=== PATIENT | female | born 1960 | race American Indian/Alaskan Native ===

== ENCOUNTER 2016-12-14 14:25 | Emergency (ER) | payer SELFPAY ==
[2016-12-14 15:12] LABS: Basophils % (Auto) 0.6 % (0.0-1.8); Eosinophils % (Auto) 2.4 % (0.0-4.3); Hematocrit 39.1 % (30.3-42.9); Mean Corpuscular HGB Conc 33 % (30-34); Mean Corpuscular Hemoglobin 27 pg (28-32); Mean Corpuscular Volume 82 fl (79-97); Platelet Count 323 K/mm3 (140-440); Red Blood Count 4.75 M/mm3 (3.65-5.03); Red Cell Distribution Width 14.2 % (13.2-15.2); White Blood Count 9.7 K/mm3 (4.5-11.0)
[2016-12-14 15:32] LABS: Anion Gap 20 mmol/L; BUN/Creatinine Ratio 27.14; Blood Urea Nitrogen 19 mg/dL (7-17); Calcium 9.7 mg/dL (8.4-10.2); Carbon Dioxide 27 mmol/L (22-30); Glucose 313 mg/dL (65-100); Potassium 4.6 mmol/L (3.6-5.0); Sodium 134 mmol/L (137-145)
--- NOTE | 2016-12-14 15:36 | XRay Report ---
CHEST 2 VIEWS INDICATION: Shortness of breath. COMPARISON: . FINDINGS: PA and lateral chest radiographs demonstrate slight exaggerated cardiomediastinal silhouette/possible cardiomegaly. Clear lungs. Stable bones. CONCLUSION: No acute disease in the chest. Thank you for the opportunity to participate in this patient's care.
--- NOTE | 2016-12-14 17:46 | Emergency Department Report ---
- General Chief Complaint: Dizziness Stated Complaint: DIZZINESS Time Seen by Provider: 12/14/16 17:45 Source: patient Mode of arrival: Ambulatory Limitations: No Limitations - History of Present Illness Initial Comments: Patient here reports that she has) 9 weeks. She states that she's been to clinic 3 without relief. She is taking [id number] medication without any relief. She is having nasal congestion, ears are clogged. Denies any shortness of breath. She says she's having chest aching times several weeks which is associated with coughing. Denies any fever. Complaining of dizziness on and off with decrease in taste. She said when on for 2 weeks. She is complaining of left-sided chest pain 2-4 days. Reports shortness of breath 2 days. She said she goes to the chest. Clinic and put on Rhinocort and Robitussin which is not helping. She has a history of diabetes type 2, hypertension and increased cholesterol and asthma. Denies any nausea vomiting or abdominal pain. She is reports she is having facial pain is getting worse. The left chest and facial pain is 6 out of 10 and feels achy. Denies any history of heart disease or heart attack in the past. Patient does have a history of congestive heart failure . She denies any radiation of pain. MD Complaint: cough, rhinorrhea, nasal congestion, sinus pain Onset/Timin -: week(s) Severity: moderate Severity scale (0 -10): 6 Quality: aching Consistency: intermittent Improves With: OTC cold medicine, OTC nasal spray Worsens With: nothing Context: other (Sinus problems over the last 9 weeks) Associated Symptoms: rhinorrhea, nasal congestion, cough, chest pain, ear pain ( ears are clogged). denies: fever, chills, myalgias, diaphoresis, sore throat, shortness of breath, abdominal pain, nausea, vomiting, diarrhea, dysuria, rash, confusion, right sweats, weight loss, epistaxis, hoarseness Treatments Prior to Arrival: "cold medicine" - Related Data Home Medications Medication Instructions Recorded Confirmed Last Taken Aspirin [Aspirin BABY CHEW TAB] 81 mg PO QDAY 09/30/13 09/30/13 09/30/13 07:00 Furosemide [Lasix] 20 mg PO QDAY 09/30/13 09/30/13 09/29/13 10:00 Insulin Lispro Prot/Lispro 45 units SUB-Q QPM 09/30/13 09/30/13 09/29/13 18:00 [Humalog Mix 75/25] Insulin NPL/Insulin Lispro 75 units SUB-Q QDAY 09/30/13 09/30/13 09/29/13 10:00 [Humalog Mix 75-25 Vial] Lisinopril [Zestril TAB] 20 mg PO BID 09/30/13 09/30/13 09/30/13 07:00 Potassium Chloride [Klor-Con] 20 meq PO QDAY 09/30/13 09/30/13 09/29/13 10:00 glipiZIDE [glipiZIDE XL] 10 mg PO QDAY 09/30/13 09/30/13 09/29/13 10:00 metFORMIN [Glucophage] 500 mg PO BID 09/30/13 09/30/13 09/29/13 18:00 Previous Rx's Medication Instructions Recorded Last Taken Type Albuterol Sulfate [Proventil HFA] 1 - 2 puff IH Q4H PRN #1 hfa.aer.ad 09/30/13 Unknown Rx Ibuprofen [Motrin] 800 mg PO TID PRN #20 tablet 09/30/13 Unknown Rx Prednisone 40 mg PO QDAY #8 tablet 09/30/13 Unknown Rx HYDROcodone/APAP 5-325 [[place] 1 each PO Q6HR PRN #20 tablet 11/10/14 Unknown Rx 5-325 mg TAB] Ondansetron [Zofran] 4 mg PO Q6HR PRN #20 tablet 11/10/14 Unknown Rx HYDROcodone/APAP 5-325 [[place] 1 each PO Q6HR PRN #20 tablet 03/15/15 Unknown Rx 5/325] Azithromycin [Zithromax Z-DANIEL] 250 mg PO DAILY #6 tab 12/14/16 Unknown Rx guaiFENesin/CODEINE [Robitussin AC] 10 ml PO QHS PRN #70 ml 12/14/16 Unknown Rx predniSONE [Deltasone] 20 mg PO QDAY #5 tab 12/14/16 Unknown Rx Allergies Allergy/AdvReac Type Severity Reaction Status Date / Time cephalexin monohydrate AdvReac Anaphylaxis Verified 12/14/16 14:48 [From Keflex] ciprofloxacin [From Cipro] AdvReac "KIDNEY Verified 12/14/16 14:49 PROBLEMS" ciprofloxacin HCl AdvReac "KIDNEY Verified 12/14/16 14:49 [From Cipro] PROBLEMS" ED Review of Systems ROS: Stated complaint: DIZZINESS Other details as noted in HPI Comment: All other systems reviewed and negative Constitutional: denies: chills, diaphoresis ENT: ear pain (clogged ears), congestion, other (facial pain). denies: throat pain, dental pain, hearing loss Respiratory: cough, shortness of breath, SOB with exertion. denies: SOB at rest , stridor, wheezing Cardiovascular: chest pain. denies: palpitations, edema, syncope Gastrointestinal: denies: abdominal pain, nausea, vomiting, diarrhea Skin: denies: rash Neurological: other (dizziness). denies: headache, numbness, paresthesias, confusion Psychiatric: anxiety ED Past Medical Hx - Past Medical History Previous Medical History?: Yes Hx Hypertension: Yes Hx Congestive Heart Failure: Yes Hx Diabetes: Yes Hx GERD: Yes Hx Arthritis: Yes Hx Kidney Stones: Yes Hx Asthma: Yes Additional medical history: high cholesterol. SCIATICA. GALLSTONES - Surgical History Past Surgical History?: Yes Additional Surgical History: hysterectomy - Family History Family history: hypertension - Social History Smoking Status: Never Smoker Substance Use Type: None - Medications Home Medications: Home Medications Medication Instructions Recorded Confirmed Last Taken Type Albuterol Sulfate [Proventil HFA] 1 - 2 puff IH Q4H PRN #1 hfa.aer.ad 09/30/13 Unknown Rx Aspirin [Aspirin BABY CHEW TAB] 81 mg PO QDAY 09/30/13 09/30/13 09/30/13 07:00 History Furosemide [Lasix] 20 mg PO QDAY 09/30/13 09/30/13 09/29/13 10:00 History Ibuprofen [Motrin] 800 mg PO TID PRN #20 tablet 09/30/13 Unknown Rx Insulin Lispro Prot/Lispro 45 units SUB-Q QPM 09/30/13 09/30/13 09/29/13 18:00 History [Humalog Mix 75/25] Insulin NPL/Insulin Lispro 75 units SUB-Q QDAY 09/30/13 09/30/13 09/29/13 10:00 History [Humalog Mix 75-25 Vial] Lisinopril [Zestril TAB] 20 mg PO BID 09/30/13 09/30/13 09/30/13 07:00 History Potassium Chloride [Klor-Con] 20 meq PO QDAY 09/30/13 09/30/13 09/29/13 10:00 History Prednisone 40 mg PO QDAY #8 tablet 09/30/13 Unknown Rx glipiZIDE [glipiZIDE XL] 10 mg PO QDAY 09/30/13 09/30/13 09/29/13 10:00 History metFORMIN [Glucophage] 500 mg PO BID 09/30/13 09/30/13 09/29/13 18:00 History HYDROcodone/APAP 5-325 [[place] 1 each PO Q6HR PRN #20 tablet 11/10/14 Unknown Rx 5-325 mg TAB] Ondansetron [Zofran] 4 mg PO Q6HR PRN #20 tablet 11/10/14 Unknown Rx HYDROcodone/APAP 5-325 [[place] 1 each PO Q6HR PRN #20 tablet 03/15/15 Unknown Rx 5/325] Azithromycin [Zithromax Z-DANIEL] 250 mg PO DAILY #6 tab 12/14/16 Unknown Rx guaiFENesin/CODEINE [Robitussin AC] 10 ml PO QHS PRN #70 ml 12/14/16 Unknown Rx predniSONE [Deltasone] 20 mg PO QDAY #5 tab 12/14/16 Unknown Rx ED Physical Exam - General Limitations: No Limitations General appearance: alert, in no apparent distress - Head Head exam: Present: atraumatic, normocephalic, normal inspection - Eye Eye exam: Present: normal appearance, PERRL, EOMI. Absent: periorbital swelling , periorbital tenderness Pupils: Present: normal accommodation - ENT ENT exam: Present: normal orophraynx, mucous membranes moist, normal external ear exam, other (bilateral nasal mucosa congested with erythema). Absent: TM's normal bilaterally (bilateral TMs congested without any erythema) - Neck Neck exam: Present: normal inspection, full ROM. Absent: tenderness, meningismus, lymphadenopathy - Respiratory Respiratory exam: Present: normal lung sounds bilaterally, other (Dry cough). Absent: respiratory distress, chest wall tenderness - Cardiovascular Cardiovascular Exam: Present: regular rate, normal rhythm, normal heart sounds - GI/Abdominal GI/Abdominal exam: Present: soft, normal bowel sounds. Absent: distended, tenderness, guarding, rebound, rigid - Extremities Exam Extremities exam: Present: normal inspection, full ROM, normal capillary refill. Absent: tenderness, pedal edema, joint swelling, calf tenderness - Back Exam Back exam: Present: normal inspection, full ROM. Absent: tenderness, CVA tenderness (R), CVA tenderness (L), muscle spasm, paraspinal tenderness, vertebral tenderness, rash noted - Neurological Exam Neurological exam: Present: alert, oriented X3, normal gait, reflexes normal. Absent: motor sensory deficit - Expanded Neurological Exam Expanded Neurological exam: Absent: innattentive, memory loss-remote event, memory loss- recent event, ataxia, receptive aphasia, expressive aphasia, total aphasia, tremor, protecting the airway Patient oriented to: Present: person, place, time Speech: Present: fluid speech Cranial nerves: EOM's Intact: Normal, Gag Reflex: Normal, Nystagmus: Normal, Facial Sensation: Normal Cerebellar function: Romberg: Normal Upper motor neuron: Pronator Drift: Normal Sensory exam: Upper Extremity Light Touch: Normal, Upper Extremity Temperature: Normal, UE 2 Point Discrimination: Normal, Lower Extremity Light Touch: Normal, Lower Extremity Temperature: Normal, LE 2 Point Discrimination: Normal Motor strength exam: RUE: 5, LUE: 5, RLE: 5, LLE: 5 DTR: bicep (R): 2+, bicep (L): 2+, tricep (R): 2+, tricep (L): 2+, knee (R): 2+ , knee (L): 2+, ankle (R): 2+, ankle (L): 2+ Best Eye Response ([place]): (4) open spontaneously Best Motor Response ([place]): (6) obeys commands Best Verbal Response ([place]): (5) oriented [place] Total: 15 - Psychiatric Psychiatric exam: Present: normal affect, normal mood - Skin Skin exam: Present: warm, dry, intact, normal color. Absent: rash ED Course Vital Signs 12/14/16 12/14/16 12/14/16 14:30 17:56 18:13 Temperature 98.1 F Pulse Rate 90 83 Pulse Rate [ 80 Bilateral Upper Lobe] Respiratory 20 16 Rate Respiratory 18 Rate [Bilateral Upper Lobe] Blood Pressure 199/87 Blood Pressure 140/67 [Left] O2 Sat by Pulse 99 100 Oximetry 12/14/16 18:23 Temperature Pulse Rate Pulse Rate [ 84 Bilateral Upper Lobe] Respiratory Rate Respiratory 18 Rate [Bilateral Upper Lobe] Blood Pressure Blood Pressure [Left] O2 Sat by Pulse Oximetry - Reevaluation(s) Reevaluation #1: 12/14/16 20:12 Patient given albuterol 5 mg and Atrovent 0.5 mg as well as an emergency room. She was given Zofran 8 mg ODT Deltasone 60 mg by mouth. 12/14/16 20:13 ED Medical Decision Making - Lab Data Result diagrams: 12/14/16 15:00 12/14/16 15:00 Lab Results 12/14/16 12/14/16 Range/Units 15:00 15:00 WBC 9.7 (4.5-11.0) K/mm3 RBC 4.75 (3.65-5.03) M/mm3 Hgb 13.0 (10.1-14.3) gm/dl Hct 39.1 (30.3-42.9) % MCV 82 (79-97) fl MCH 27 L (28-32) pg MCHC 33 (30-34) % RDW 14.2 (13.2-15.2) % Plt Count 323 (140-440) K/mm3 Lymph % (Auto) 32.5 (13.4-35.0) % [place] % (Auto) 4.6 (0.0-7.3) % Eos % (Auto) 2.4 (0.0-4.3) % Baso % (Auto) 0.6 (0.0-1.8) % Lymph # 3.2 (1.2-5.4) K/mm3 [place] # 0.5 (0.0-0.8) K/mm3 Eos # 0.2 (0.0-0.4) K/mm3 Baso # 0.1 (0.0-0.1) K/mm3 Seg Neutrophils % 59.9 (40.0-70.0) % Seg Neutrophils # 5.8 (1.8-7.7) K/mm3 Sodium 134 L (137-145) mmol/L Potassium 4.6 (3.6-5.0) mmol/L Chloride 92.0 L (98-107) mmol/L Carbon Dioxide 27 (22-30) mmol/L Anion Gap 20 mmol/L BUN 19 H (7-17) mg/dL Creatinine 0.7 (0.7-1.2) mg/dL Estimated GFR > 60 ml/min BUN/Creatinine Ratio 27.14 % Glucose 313 H (65-100) mg/dL Calcium 9.7 (8.4-10.2) mg/dL Troponin T < 0.010 (0.00-0.029) ng/mL - EKG Data EKG shows normal: sinus rhythm Rate: normal - EKG Data Interpretation: no acute changes - Radiology Data Radiology results: report reviewed Chest x-ray revealed no acute cardiopulmonary processes - Medical Decision Making Collaborated with Dr. Duran on management ED course: Patient presents to emergency room with cold symptoms for 9 weeks. She was complaining of chest pain and dizziness clogged ears. Chest pain and dizziness has resolved. Patient was treated by her primary care physician Crystal and Enrike which she said is not helping. Patient lab work reviewed and she has mildly decreased sodium of 134. X-ray was within normal limits and troponins were negative. I discussed lab and result with patient. Patient is feeling better. She was given Deltasone 60 mg by mouth, Zofran 8 mg ODT, albuterol 5 mg and Atrovent 0.5 mg nebulizer in emergency room. The patient that she has sinus infection and will be treated with antibiotic, continue Rhinocort and add prednisone. Also at cough medicine. Patient instructed to follow up with her primary care physician in 2 days. Discharged home with family with prescription for Z-Daniel, guaifenesin with codeine and prednisone. - Differential Diagnosis PNA, Acute Bronchitis PNA, ACS, Viral syndrome, sinusitis Critical care attestation.: If time is entered above; I have spent that time in minutes in the direct care of this critically ill patient, excluding procedure time. ED Disposition Clinical Impression: Chest pain, atypical, Cough, Dizzy spells Acute sinusitis Qualifiers: Sinusitis location: unspecified location Recurrence: non-recurrent Qualified Code(s): J01.90 - Acute sinusitis, unspecified Disposition: DISCHARGED TO HOME OR SELFCARE Is pt being admited?: No Does the pt Need Aspirin: No Condition: Stable Instructions: Chest Pain (ED), Sinusitis (ED), Dizziness (ED), Acute Cough (ED) Additional Instructions: continue using Debby Pot Follow-up with cardiology if chest pain recur. F/U Primary care physician in 2 days continue to take Rhinocort increase fluid intake Prescriptions: guaiFENesin/CODEINE [Robitussin AC] 10 ml PO QHS PRN #70 ml PRN Reason: Cough Azithromycin [Zithromax Z-DANIEL] 250 mg PO DAILY #6 tab predniSONE [Deltasone] 20 mg PO QDAY #5 tab Referrals: PRIMARY CAREMD [Primary Care Provider] - 12/16/16 MARILUZ BRIDGES MD [Staff Physician] - 12/16/16 Forms: Work/School Release Form(ED)
[2016-12-14] MEDS ORDERED: DELTASONE PO ONE (17:50)
[2016-12-14] MEDS ORDERED: PROVENTIL IH ONE (17:50)
[2016-12-14] MEDS ORDERED: ATROVENT IH ONE (17:50)
[2016-12-14] MEDS ORDERED: ZOFRAN ODT PO ONE (17:51)
[2016-12-14 17:57] VITALS: BP 140/67
== END 2016-12-14 20:42 | disposition home or self-care (01) ==
LOC: ED 14:25
DX: R07.89 Other chest pain (principal); R42 Dizziness and giddiness; J01.90 Acute sinusitis, unspecified; R05 Cough; I10 Essential (primary) hypertension; I50.9 Heart failure, unspecified; E11.9 Type 2 diabetes mellitus without complications; K21.9 Gastro-esophageal reflux disease without esophagitis; M19.90 Unspecified osteoarthritis, unspecified site; J45.909 Unspecified asthma, uncomplicated; E78.00 Pure hypercholesterolemia, unspecified; Z90.710 Acquired absence of both cervix and uterus; Z79.82 Long term (current) use of aspirin; Z79.4 Long term (current) use of insulin
CPT/HCPCS: 36415; 71020; 80048; 84484; 85025; 93005; 93010; 94640; 99284; J7512; Q0162

== ENCOUNTER 2017-05-12 07:56 | Emergency (ER) | payer SELFPAY ==
--- NOTE | 2017-05-12 09:22 | XRay Report ---
Right ankle 3 views: History: Pain and swelling. Findings: There is moderate arthritic changes noted at the talotibial joint and subtalar joint. Large spur identified at the posterior superior and posterior inferior calcaneum and inferior aspect of mid body of calcaneum. No evidence of acute fracture. Soft tissue swelling around ankle. Impression: Arthritic changes as detailed above. No evidence of acute fracture.
[2017-05-12 09:24] LABS: Basophils % (Auto) 0.7 % (0.0-1.8); Eosinophils % (Auto) 1.8 % (0.0-4.3); Hematocrit 36.9 % (30.3-42.9); Hemoglobin 12.3 gm/dl (10.1-14.3); Mean Corpuscular HGB Conc 33 % (30-34); Mean Corpuscular Hemoglobin 27 pg (28-32); Mean Corpuscular Volume 82 fl (79-97); Platelet Count 296 K/mm3 (140-440); Red Blood Count 4.51 M/mm3 (3.65-5.03); Red Cell Distribution Width 13.8 % (13.2-15.2); White Blood Count 8.8 K/mm3 (4.5-11.0)
[2017-05-12 09:37] LABS: Alanine Aminotransferase 12 units/L (7-56); Albumin 3.4 g/dL (3.9-5); Alkaline Phosphatase 90 units/L (35-129); Anion Gap 18 mmol/L; Blood Urea Nitrogen 12 mg/dL (7-17); Calcium 8.9 mg/dL (8.4-10.2); Carbon Dioxide 25 mmol/L (22-30); Chloride 97.8 mmol/L (98-107); Glucose 353 mg/dL (65-100); Potassium 3.8 mmol/L (3.6-5.0); Sodium 137 mmol/L (137-145); Total Protein 6.8 g/dL (6.3-8.2)
[2017-05-12 10:27] LABS: Ketones Negative (Negative)
[2017-05-12] MEDS ORDERED: APRESOLINE IV ONE (14:08)
[2017-05-12] MEDS ORDERED: LASIX IV ONE (14:08)
[2017-05-12] MEDS ORDERED: MORPHINE IV ONE (15:45)
--- NOTE | 2017-05-12 17:12 | Emergency Department Report ---
HPI - General Chief Complaint: Extremity Injury, Lower Time Seen by Provider: 05/12/17 13:45 - HPI HPI: This is a 57-year-old Afro-[place] female presents to the emergency department with complaint of right ankle pain and darkening of the skin to the right lower leg that has been going on for about the past 6 weeks. Sometimes the pain will radiate up into her groin. She denies any trauma. She has a history of asthma , CHF, insulin-dependent diabetes, GERD, hypertension, hyperlipidemia, sciatica. She does not have a primary care physician but goes to [facility]. She denies any chest pain, fever, shortness of breath, nausea and vomiting. No recent travel or sick contacts at home. She is able to ambulate despite the discomfort in her right leg. ED Past Medical Hx - Past Medical History Hx Hypertension: Yes Hx Congestive Heart Failure: Yes Hx Diabetes: Yes Hx GERD: Yes Hx Arthritis: Yes Hx Kidney Stones: Yes Hx Asthma: Yes Additional medical history: high cholesterol. SCIATICA. GALLSTONES - Surgical History Additional Surgical History: hysterectomy - Social History Smoking Status: Never Smoker Substance Use Type: Prescribed - Medications Home Medications: Home Medications Medication Instructions Recorded Confirmed Last Taken Type Albuterol Sulfate [Proventil HFA] 1 - 2 puff IH Q4H PRN #1 hfa.aer.ad 09/30/13 Unknown Rx Aspirin [Aspirin BABY CHEW TAB] 81 mg PO QDAY 09/30/13 09/30/13 09/30/13 07:00 History Furosemide [Lasix] 20 mg PO QDAY 09/30/13 09/30/13 09/29/13 10:00 History Ibuprofen [Motrin] 800 mg PO TID PRN #20 tablet 09/30/13 Unknown Rx Insulin Lispro Prot/Lispro 45 units SUB-Q QPM 09/30/13 09/30/13 09/29/13 18:00 History [Humalog Mix 75/25] Insulin NPL/Insulin Lispro 75 units SUB-Q QDAY 09/30/13 09/30/13 09/29/13 10:00 History [Humalog Mix 75-25 Vial] Lisinopril [Zestril TAB] 20 mg PO BID 09/30/13 09/30/13 09/30/13 07:00 History Potassium Chloride [Klor-Con] 20 meq PO QDAY 09/30/13 09/30/13 09/29/13 10:00 History Prednisone 40 mg PO QDAY #8 tablet 09/30/13 Unknown Rx glipiZIDE [glipiZIDE XL] 10 mg PO QDAY 09/30/13 09/30/13 09/29/13 10:00 History metFORMIN [Glucophage] 500 mg PO BID 09/30/13 09/30/13 09/29/13 18:00 History HYDROcodone/APAP 5-325 [[place] 1 each PO Q6HR PRN #20 tablet 11/10/14 Unknown Rx 5-325 mg TAB] Ondansetron [Zofran] 4 mg PO Q6HR PRN #20 tablet 11/10/14 Unknown Rx HYDROcodone/APAP 5-325 [[place] 1 each PO Q6HR PRN #20 tablet 03/15/15 Unknown Rx 5/325] Azithromycin [Zithromax Z-CHEN] 250 mg PO DAILY #6 tab 12/14/16 Unknown Rx guaiFENesin/CODEINE [Robitussin AC] 10 ml PO QHS PRN #70 ml 12/14/16 Unknown Rx predniSONE [Deltasone] 20 mg PO QDAY #5 tab 12/14/16 Unknown Rx ED Review of Systems ROS: Stated complaint: R ANKLE SWELLING/LEG/GROIN AREA PAIN Other details as noted in HPI Comment: All other systems reviewed and negative Constitutional: denies: chills, fever Eyes: denies: eye pain, eye discharge, vision change ENT: denies: ear pain, throat pain Respiratory: denies: cough, shortness of breath, wheezing Cardiovascular: denies: chest pain, palpitations Gastrointestinal: denies: abdominal pain, nausea, diarrhea Genitourinary: denies: urgency, dysuria, discharge Musculoskeletal: arthralgia, myalgia Skin: change in color. denies: rash Neurological: denies: headache, weakness, paresthesias Physical Exam - Physical Exam Vital Signs: Vital Signs 05/12/17 05/12/17 05/12/17 08:19 13:21 13:22 Temperature 98.5 F 98.2 F Pulse Rate 90 92 H Respiratory 19 18 16 Rate Blood Pressure 156/89 Blood Pressure 174/66 [Left] O2 Sat by Pulse 100 99 Oximetry 05/12/17 05/12/17 14:49 15:14 Temperature 98.4 F Pulse Rate 78 89 Respiratory 18 Rate Blood Pressure 175/89 Blood Pressure 140/60 [Left] O2 Sat by Pulse 99 Oximetry Physical Exam: GENERAL: The patient is well-developed well-nourished. HEENT: Normocephalic. Atraumatic. Extraocular motions are intact. Patient has moist mucous membranes. Pupils equal reactive to light bilaterally. NECK: Supple. Trachea is midline. CHEST/LUNGS: Clear to auscultation. There is no respiratory distress noted. HEART/CARDIOVASCULAR: Regular. There is no tachycardia. There is no gallop rub or murmur. ABDOMEN: Abdomen is soft, nontender. Patient has normal bowel sounds. There is no abdominal distention. Morbidly obese habitus. SKIN: There is darkening of the skin of the right lower extremity towards the distal one third of the tib-fib. There is no erythema, warmth, bleeding, discharge or fluctuance. NEURO: The patient is awake, alert, and oriented. The patient is cooperative. The patient has no focal neurologic deficits. The patient has normal speech. MUSCULOSKELETAL: There is some mild tenderness to palpation to the right distal tib-fib and ankle but no obvious deformity.. There is no limitation range of motion. Cap refill less than 2 seconds. Patient is neurovascularly intact. Muscle strength 5 out of 5 for upper and lower extremities bilaterally. ED Course Vital Signs 05/12/17 05/12/17 05/12/17 08:19 13:21 13:22 Temperature 98.5 F 98.2 F Pulse Rate 90 92 H Respiratory 19 18 16 Rate Blood Pressure 156/89 Blood Pressure 174/66 [Left] O2 Sat by Pulse 100 99 Oximetry 05/12/17 05/12/17 14:49 15:14 Temperature 98.4 F Pulse Rate 78 89 Respiratory 18 Rate Blood Pressure 175/89 Blood Pressure 140/60 [Left] O2 Sat by Pulse 99 Oximetry ED Medical Decision Making - Lab Data Result diagrams: 05/12/17 08:47 05/12/17 08:47 - Radiology Data Radiology results: report reviewed, image reviewed interpreted by me: X-ray of the right ankle does not show any fracture, dislocation or any acute process. Right lower extremity venous Doppler is negative for DVT. - Medical Decision Making 57-year-old female since the emergency Department with complaint of right ankle pain been going on for past 6-8 weeks. Due to the fact that it radiates up towards the groin she had a venous Doppler that was negative for DVT. X-ray of the right ankle does not show any fracture, dislocation or any acute process. As part of her evaluation she was found out to have hyperglycemia with a blood sugar of about 330. She was given IV insulin and they came down from a starting point of about 350 down to 270 and still will continue to drop as the medication is still active. She did not receive any fluid resuscitation as the patient was also found to have very elevated blood pressure. She was given a dose of pain medication and a dose of hydralazine and her blood pressure came down to a much more reasonable level. The rest the patient's labs are unremarkable did not show any etiology for symptoms. She'll be given referrals for a different primary care clinics as well as an orthopedist. She will return to the ER if any worsening or symptoms or any acute distress. We discussed dietary changes for her diabetes and she will continue with her normal diabetes regimen. The patient says that she checks her sugar and will do so prior to dinner this evening. Also involving the patient's diabetes, she does not appear to be in diabetic ketoacidosis or HHNK as there is no significant elevation in her anion gap and there is no venous acidosis. - Differential Diagnosis fracture, DVT, venous stasis, superficial thrombophlebitis Critical Care Time: No Critical care attestation.: If time is entered above; I have spent that time in minutes in the direct care of this critically ill patient, excluding procedure time. ED Disposition Clinical Impression: Hypertensive urgency, Hyperglycemia Right ankle pain Qualifiers: Chronicity: acute Qualified Code(s): M25.571 - Pain in right ankle and joints of right foot Disposition: DC-01 TO HOME OR SELFCARE Is pt being admited?: No Condition: Stable Additional Instructions: Please follow-up with a primary care physician in the next few days. I have given your referral for a local orthopedist, Dr. Levi, and a local advance agent , Dr. Gonzalez, in order to follow-up regarding her right lower extremity pain and for regular checkups due to diabetes. Try to stay away from foods are high in salt and caffeinated products to help with your elevated blood pressure. Try to stay away from foods that are high in carbohydrates, starches and sugars to help with her diabetes. Return to the emergency department with any worsening of your symptoms or any acute distress. Referrals: PRIMARY CARE, [Primary Care Provider] - 3-5 Days ANDREW LEVI MD [Staff Physician] - 3-5 Days FABRIZIO GONZALEZ MD [Staff Physician] - 3-5 Days [facility] [Outside] - 3-5 Days [facility] [Outside] - 3-5 Days [facility] [Outside] - 3-5 Days [facility] [Outside] - 3-5 Days Time of Disposition: 17:15
[2017-05-12 17:50] VITALS: BP 143/66
== END 2017-05-12 17:46 | disposition home or self-care (01) ==
LOC: ED 07:56
DX: M25.571 Pain in right ankle and joints of right foot (principal); I16.0 Hypertensive urgency; E11.65 Type 2 diabetes mellitus with hyperglycemia; I50.9 Heart failure, unspecified; K21.9 Gastro-esophageal reflux disease without esophagitis; M19.90 Unspecified osteoarthritis, unspecified site; J45.909 Unspecified asthma, uncomplicated; E78.00 Pure hypercholesterolemia, unspecified; Z79.4 Long term (current) use of insulin; Z79.82 Long term (current) use of aspirin; Z88.1 Allergy status to other antibiotic agents; Z88.8 Allergy status to other drugs, medicaments and biological substances
CPT/HCPCS: 36415; 73610; 80053; 82010; 82805; 82962; 83880; 85025; 93971; 96374; 96375; 96376; 99284; J0360; J1940; J2270; J1815

== ENCOUNTER 2017-11-14 08:54 | Emergency (ER) | payer SELFPAY ==
[2017-11-14] MEDS ORDERED: NORMODYNE PO ONE (09:40)
[2017-11-14 09:49] LABS: Basophils % (Auto) 0.6 % (0.0-1.8); Eosinophils % (Auto) 0.5 % (0.0-4.3); Hematocrit 40.4 % (30.3-42.9); Hemoglobin 13.1 gm/dl (10.1-14.3); Lymphocytes # (Auto) 1.9 K/mm3 (1.2-5.4); Lymphocytes % (Auto) 39.4 % (13.4-35.0); Mean Corpuscular HGB Conc 33 % (30-34); Mean Corpuscular Hemoglobin 26 pg (28-32); Mean Corpuscular Volume 81 fl (79-97); Monocytes # (Auto) 0.4 K/mm3 (0.0-0.8); Monocytes % (Auto) 9.2 % (0.0-7.3); Platelet Count 273 K/mm3 (140-440); Red Blood Count 4.97 M/mm3 (3.65-5.03); Red Cell Distribution Width 14.3 % (13.2-15.2)
[2017-11-14 10:00] LABS: BUN/Creatinine Ratio 10; Blood Urea Nitrogen 8 mg/dL (7-17); Calcium 8.5 mg/dL (8.4-10.2); Hemolysis Index 0
--- NOTE | 2017-11-14 11:17 | XRay Report ---
ROUTINE CHEST, TWO VIEWS: HISTORY: Shortness of breath. The trachea, heart, mediastinal contour, lung stein and bony thorax are unremarkable. No significant change since 12/14/16. IMPRESSION: Unremarkable chest x-ray.
[2017-11-14] MEDS ORDERED: TYLENOL ONE (13:38)
[2017-11-14] MEDS ORDERED: TYLENOL PO ONE (13:39)
[2017-11-14] MEDS ORDERED: DUONEB *Not for PRN Use IH ONE (17:10)
[2017-11-14] MEDS ORDERED: XOPENEX IH ONE (20:57)
--- NOTE | 2017-11-14 21:02 | Emergency Department Report ---
ED Shortness of Breath HPI - General Chief Complaint: Dyspnea/Respdistress Stated Complaint: FLU LIKE SYMPTOMS Time Seen by Provider: 11/14/17 20:43 Source: patient Mode of arrival: Ambulatory Limitations: No Limitations - History of Present Illness Initial Comments: Patient is 57 years old female history of hypertension and asthma presented to the ER with 2 weeks history of shortness of breath cough, nonproductive. Patient stated that her symptoms started with runny nose cough and congestion, she took [id number] medication for cough but no improvement. Patient denied any nausea or vomiting. MD Complaint: shortness of breath, cough, chest pain, "asthma attack" -: Gradual, week(s) Consistency: constant Known History Of: asthma Context: recent URI Associated Symptoms: chest pain, fever, cough, sputum production - Related Data Home Medications Medication Instructions Recorded Confirmed Last Taken Aspirin [Aspirin BABY CHEW TAB] 81 mg PO QDAY 09/30/13 09/30/13 09/30/13 07:00 Furosemide [Lasix] 20 mg PO QDAY 09/30/13 09/30/13 09/29/13 10:00 Insulin Lispro Prot/Lispro 45 units SUB-Q QPM 09/30/13 09/30/13 09/29/13 18:00 [Humalog Mix 75/25] Insulin Lispro Protamin/Lispro 75 units SUB-Q QDAY 09/30/13 09/30/13 09/29/13 10 :00 [Humalog Mix 75-25 Vial] Lisinopril [Zestril TAB] 20 mg PO BID 09/30/13 09/30/13 09/30/13 07:00 Potassium Chloride [Klor-Con] 20 meq PO QDAY 09/30/13 09/30/13 09/29/13 10:00 glipiZIDE [glipiZIDE XL] 10 mg PO QDAY 09/30/13 09/30/13 09/29/13 10:00 metFORMIN [Glucophage] 500 mg PO BID 09/30/13 09/30/13 09/29/13 18:00 Previous Rx's Medication Instructions Recorded Last Taken Type Albuterol Sulfate [Proventil HFA] 1 - 2 puff IH Q4H PRN #1 hfa.aer.ad 09/30/13 Unknown Rx Ibuprofen [Motrin] 800 mg PO TID PRN #20 tablet 09/30/13 Unknown Rx Prednisone 40 mg PO QDAY #8 tablet 09/30/13 Unknown Rx HYDROcodone/APAP 5-325 [[place] 1 each PO Q6HR PRN #20 tablet 11/10/14 Unknown Rx 5-325 mg TAB] Ondansetron [Zofran] 4 mg PO Q6HR PRN #20 tablet 11/10/14 Unknown Rx HYDROcodone/APAP 5-325 [[place] 1 each PO Q6HR PRN #20 tablet 03/15/15 Unknown Rx 5/325] Azithromycin [Zithromax Z-CHEN] 250 mg PO DAILY #6 tab 12/14/16 Unknown Rx guaiFENesin/CODEINE [Robitussin AC] 10 ml PO QHS PRN #70 ml 12/14/16 Unknown Rx predniSONE [Deltasone] 20 mg PO QDAY #5 tab 12/14/16 Unknown Rx Allergies Allergy/AdvReac Type Severity Reaction Status Date / Time cephalexin monohydrate Allergy Anaphylaxis Verified 05/12/17 08:11 [From Keflex] ciprofloxacin HCl Allergy "KIDNEY Verified 05/12/17 08:11 [From Cipro] PROBLEMS" ciprofloxacin [From Cipro] AdvReac "KIDNEY Verified 05/12/17 08:11 PROBLEMS" ED Review of Systems ROS: Stated complaint: FLU LIKE SYMPTOMS Other details as noted in HPI Comment: All other systems reviewed and negative Constitutional: fever. denies: chills ENT: throat pain, congestion Respiratory: cough, shortness of breath, wheezing. denies: SOB with exertion, SOB at rest Cardiovascular: chest pain, palpitations. denies: dyspnea on exertion, orthopnea, edema, syncope Gastrointestinal: denies: nausea, vomiting, diarrhea, constipation, hematemesis , hematochezia Musculoskeletal: denies: back pain, joint swelling Neurological: denies: headache, numbness, paresthesias, abnormal gait ED Past Medical Hx - Past Medical History Previous Medical History?: Yes Hx Hypertension: Yes Hx Congestive Heart Failure: Yes Hx Diabetes: Yes Hx GERD: Yes Hx Arthritis: Yes Hx Kidney Stones: Yes Hx Asthma: Yes Additional medical history: high cholesterol. SCIATICA. GALLSTONES - Surgical History Past Surgical History?: Yes Additional Surgical History: hysterectomy - Social History Smoking Status: Never Smoker Substance Use Type: None - Medications Home Medications: Home Medications Medication Instructions Recorded Confirmed Last Taken Type Albuterol Sulfate [Proventil HFA] 1 - 2 puff IH Q4H PRN #1 hfa.aer.ad 09/30/13 Unknown Rx Aspirin [Aspirin BABY CHEW TAB] 81 mg PO QDAY 09/30/13 09/30/13 09/30/13 07:00 History Furosemide [Lasix] 20 mg PO QDAY 09/30/13 09/30/13 09/29/13 10:00 History Ibuprofen [Motrin] 800 mg PO TID PRN #20 tablet 09/30/13 Unknown Rx Insulin Lispro Prot/Lispro 45 units SUB-Q QPM 09/30/13 09/30/13 09/29/13 18:00 History [Humalog Mix 75/25] Insulin Lispro Protamin/Lispro 75 units SUB-Q QDAY 09/30/13 09/30/13 09/29/13 10 :00 History [Humalog Mix 75-25 Vial] Lisinopril [Zestril TAB] 20 mg PO BID 09/30/13 09/30/13 09/30/13 07:00 History Potassium Chloride [Klor-Con] 20 meq PO QDAY 09/30/13 09/30/13 09/29/13 10:00 History Prednisone 40 mg PO QDAY #8 tablet 09/30/13 Unknown Rx glipiZIDE [glipiZIDE XL] 10 mg PO QDAY 09/30/13 09/30/13 09/29/13 10:00 History metFORMIN [Glucophage] 500 mg PO BID 09/30/13 09/30/13 09/29/13 18:00 History HYDROcodone/APAP 5-325 [[place] 1 each PO Q6HR PRN #20 tablet 11/10/14 Unknown Rx 5-325 mg TAB] Ondansetron [Zofran] 4 mg PO Q6HR PRN #20 tablet 11/10/14 Unknown Rx HYDROcodone/APAP 5-325 [[place] 1 each PO Q6HR PRN #20 tablet 03/15/15 Unknown Rx 5/325] Azithromycin [Zithromax Z-CHEN] 250 mg PO DAILY #6 tab 12/14/16 Unknown Rx guaiFENesin/CODEINE [Robitussin AC] 10 ml PO QHS PRN #70 ml 12/14/16 Unknown Rx predniSONE [Deltasone] 20 mg PO QDAY #5 tab 12/14/16 Unknown Rx ED Physical Exam - General Limitations: No Limitations General appearance: alert, in no apparent distress - Head Head exam: Present: atraumatic, normocephalic, normal inspection - Eye Eye exam: Present: normal appearance, PERRL Pupils: Present: normal accommodation - ENT ENT exam: Present: normal exam - Neck Neck exam: Present: normal inspection, full ROM. Absent: tenderness, meningismus, lymphadenopathy, thyromegaly - Respiratory Respiratory exam: Present: wheezes, rhonchi, decreased breath sounds, prolonged expiratory. Absent: rales, stridor - Cardiovascular Cardiovascular Exam: Present: tachycardia - GI/Abdominal GI/Abdominal exam: Present: soft, normal bowel sounds. Absent: distended, tenderness, guarding, rebound, rigid, organomegaly, mass, bruit, pulsatile mass , hernia - Extremities Exam Extremities exam: Present: normal inspection, full ROM, normal capillary refill - Back Exam Back exam: Present: normal inspection, full ROM. Absent: tenderness, CVA tenderness (R), CVA tenderness (L), muscle spasm, paraspinal tenderness - Neurological Exam Neurological exam: Present: alert, oriented X3, CN II-XII intact, normal gait - Skin Skin exam: Present: warm, intact, normal color. Absent: cyanosis, diaphoretic, erythema ED Course Vital Signs 11/14/17 11/14/17 11/14/17 09:28 09:47 13:46 Temperature 98.4 F Pulse Rate 109 H 109 H 94 H Pulse Rate [ Bilateral Upper Lobe] Respiratory 20 18 Rate Respiratory Rate [Bilateral Upper Lobe] Blood Pressure 205/90 205/90 Blood Pressure 199/91 [Right] O2 Sat by Pulse 96 99 Oximetry 11/14/17 11/14/17 11/14/17 17:17 17:22 20:36 Temperature Pulse Rate Pulse Rate [ 100 H 102 H Bilateral Upper Lobe] Respiratory Rate Respiratory 20 20 Rate [Bilateral Upper Lobe] Blood Pressure 166/70 Blood Pressure [Right] O2 Sat by Pulse 94 Oximetry 11/14/17 11/14/17 11/14/17 20:45 21:00 21:15 Temperature Pulse Rate 90 92 H 93 H Pulse Rate [ Bilateral Upper Lobe] Respiratory 15 16 20 Rate Respiratory Rate [Bilateral Upper Lobe] Blood Pressure 169/72 149/58 138/71 Blood Pressure [Right] O2 Sat by Pulse Oximetry 11/14/17 11/14/17 11/14/17 21:30 21:45 22:01 Temperature Pulse Rate 88 93 H 94 H Pulse Rate [ Bilateral Upper Lobe] Respiratory 14 19 12 Rate Respiratory Rate [Bilateral Upper Lobe] Blood Pressure 136/61 147/78 105/64 Blood Pressure [Right] O2 Sat by Pulse Oximetry 11/14/17 22:15 Temperature Pulse Rate 100 H Pulse Rate [ Bilateral Upper Lobe] Respiratory 23 Rate Respiratory Rate [Bilateral Upper Lobe] Blood Pressure 175/68 Blood Pressure [Right] O2 Sat by Pulse Oximetry - Reevaluation(s) Reevaluation #1: 11/14/17 23:42 Patient stated that she is feeling much better. Oxygen saturation is 100% on room air. Patient moving good air bilaterally, no wheezing. ED Medical Decision Making - Lab Data Result diagrams: 11/14/17 09:36 11/14/17 09:36 - EKG Data -: EKG Interpreted by Mo EKG shows normal: sinus rhythm Rate: normal - EKG Data Interpretation: no acute changes - Radiology Data Radiology results: report reviewed Referring Physician: ED ARELIS Patient Name: FIDE COMBS Date of : 1960 Sex: Female Report Date: 2017-11-14 Report Status: Finalized Findings [facility] [address] [place] [address] XRay Report Signed Patient: FIDE COMBS MR#: [id number] : 1960 Acct:[id number] Age/Sex: 57 / F ADM Date: 11/14/17 Loc: ED Attending Dr: Ordering Physician: GIOVANNA INFANTE MD Date of Service: 11/14/17 Procedure(s): XR chest routine 2V Accession Number(s): [id number] cc: ED MD ARELIS Fluoro Time In Minutes: ROUTINE CHEST, TWO VIEWS: HISTORY: Shortness of breath. The trachea, heart, mediastinal contour, lung stein and bony thorax are unremarkable. No significant change since 12/14/16. IMPRESSION: Unremarkable chest x-ray. Transcribed By: TTR Dictated By: NEDA CLANCY JR, MD Electronically Authenticated By: NEDA CLANCY JR, MD Signed Date/Time: 11/14/17 1111 DD/ 1110 TD/TT: 11/14/17 1111 Critical care attestation.: If time is entered above; I have spent that time in minutes in the direct care of this critically ill patient, excluding procedure time. ED Disposition Clinical Impression: Asthma attack, Acute bronchitis, Shortness of breath Disposition: -01 TO HOME OR SELFCARE Is pt being admited?: No Condition: Stable Instructions: Acute Bronchitis (ED), Asthma (ED) Additional Instructions: Please follow up with her primary care physician in the next 2-3 days. If symptoms return or develop new symptoms please return to the ER. Referrals: PRIMARY CARE, [Primary Care Provider] - 3-5 Days
[2017-11-14] MEDS ORDERED: ZITHROMAX 500 MG in NACL 0.9% 250ML 250 ML IV ONE (23:31)
[2017-11-15 02:36] VITALS: BP 199/91
== END 2017-11-15 02:20 | disposition home or self-care (01) ==
LOC: ED 08:54
DX: J45.909 Unspecified asthma, uncomplicated (principal); I11.0 Hypertensive heart disease with heart failure; E11.9 Type 2 diabetes mellitus without complications; K21.9 Gastro-esophageal reflux disease without esophagitis; E78.00 Pure hypercholesterolemia, unspecified; Z90.710 Acquired absence of both cervix and uterus; Z79.82 Long term (current) use of aspirin; Z79.4 Long term (current) use of insulin
CPT/HCPCS: 36415; 71046; 80048; 83880; 84484; 85025; 87400; 93005; 93010; 94640; 96365; 96366; 96375; 99284; J0456; J2930; J7050

== ENCOUNTER 2018-05-17 11:43 | Inpatient (IN) | payer SELFPAY ==
[2018-05-17] MEDS ORDERED: LASIX IV ONE (13:56)
[2018-05-17] MEDS ORDERED: ASPIRIN PO ONE (13:56)
--- NOTE | 2018-05-17 13:58 | Emergency Department Report ---
ED General Adult HPI - General Chief complaint: Dyspnea/Respdistress Stated complaint: BODY SWOLLEN/SHORT OF BREATH Time Seen by Provider: 05/17/18 13:42 Source: patient Mode of arrival: Wheelchair Limitations: No Limitations - History of Present Illness Initial comments: Patient is a 58-year-old [place] female who is presenting with shortness of breath and total body swelling for the past 2-3 days. Patient does have a history of CHF and has been compliant with her Lasix however she doesn't feel as though she is urinating very well. Patient states she has usually has some swelling in her ankles but now it's up through the thighs and abdomen. Patient denies having orthopnea and dyspnea with exertion. Patient also feels a 5 out of 10 chest tightness as well this is been present since yesterday. - Related Data Home Medications Medication Instructions Recorded Confirmed Last Taken Aspirin [Aspirin BABY CHEW TAB] 81 mg PO QDAY 09/30/13 05/17/18 09/30/13 07:00 Furosemide [Lasix] 20 mg PO QDAY 09/30/13 05/17/18 09/29/13 10:00 Insulin Lispro Prot/Lispro 45 units SUB-Q QPM 09/30/13 05/17/18 09/29/13 18:00 [Humalog Mix 75/25] Insulin Lispro Protamin/Lispro 75 units SUB-Q QDAY 09/30/13 05/17/18 09/29/13 10 :00 [Humalog Mix 75-25 Vial] Lisinopril [Zestril TAB] 20 mg PO BID 09/30/13 05/17/18 09/30/13 07:00 Potassium Chloride [Klor-Con] 20 meq PO QDAY 09/30/13 05/17/18 09/29/13 10:00 glipiZIDE [glipiZIDE XL] 10 mg PO QDAY 09/30/13 05/17/18 09/29/13 10:00 metFORMIN [Glucophage] 500 mg PO BID 09/30/13 05/17/18 09/29/13 18:00 Previous Rx's Medication Instructions Recorded Last Taken Type Albuterol Sulfate [Proventil HFA] 1 - 2 puff IH Q4H PRN #1 hfa.aer.ad 09/30/13 Unknown Rx Ibuprofen [Motrin] 800 mg PO TID PRN #20 tablet 09/30/13 Unknown Rx Prednisone 40 mg PO QDAY #8 tablet 09/30/13 Unknown Rx HYDROcodone/APAP 5-325 [[place] 1 each PO Q6HR PRN #20 tablet 11/10/14 Unknown Rx 5-325 mg TAB] Ondansetron [Zofran] 4 mg PO Q6HR PRN #20 tablet 11/10/14 Unknown Rx HYDROcodone/APAP 5-325 [[place] 1 each PO Q6HR PRN #20 tablet 03/15/15 Unknown Rx 5/325] guaiFENesin/CODEINE [Robitussin AC] 10 ml PO QHS PRN #70 ml 12/14/16 Unknown Rx predniSONE [Deltasone] 20 mg PO QDAY #5 tab 12/14/16 Unknown Rx Prednisone [predniSONE 10 mg 10 mg PO .TAPER #1 tab.ds.pk 11/14/17 Unknown Rx (6-Day Pack, 21 Tabs)] guaiFENesin/CODEINE [Robitussin AC] 10 ml PO TID PRN #100 ml 11/14/17 Unknown Rx Allergies Allergy/AdvReac Type Severity Reaction Status Date / Time cephalexin monohydrate Allergy Anaphylaxis Verified 05/12/17 08:11 [From Keflex] ciprofloxacin HCl Allergy "KIDNEY Verified 05/12/17 08:11 [From Cipro] PROBLEMS" ciprofloxacin [From Cipro] AdvReac "KIDNEY Verified 05/12/17 08:11 PROBLEMS" ED Review of Systems ROS: Stated complaint: BODY SWOLLEN/SHORT OF BREATH Other details as noted in HPI Comment: All other systems reviewed and negative ED Past Medical Hx - Past Medical History Hx Hypertension: Yes Hx Congestive Heart Failure: Yes Hx Diabetes: Yes Hx GERD: Yes Hx Arthritis: Yes Hx Kidney Stones: Yes Hx Asthma: Yes Additional medical history: high cholesterol. SCIATICA. GALLSTONES - Surgical History Additional Surgical History: hysterectomy - Social History Smoking Status: Never Smoker Substance Use Type: None - Medications Home Medications: Home Medications Medication Instructions Recorded Confirmed Last Taken Type Albuterol Sulfate [Proventil HFA] 1 - 2 puff IH Q4H PRN #1 hfa.aer.ad 09/30/13 05/17/18 Unknown Rx Aspirin [Aspirin BABY CHEW TAB] 81 mg PO QDAY 09/30/13 05/17/18 09/30/13 07:00 History Furosemide [Lasix] 20 mg PO QDAY 09/30/13 05/17/18 09/29/13 10:00 History Ibuprofen [Motrin] 800 mg PO TID PRN #20 tablet 09/30/13 05/17/18 Unknown Rx Insulin Lispro Prot/Lispro 45 units SUB-Q QPM 09/30/13 05/17/18 09/29/13 18:00 History [Humalog Mix 75/25] Insulin Lispro Protamin/Lispro 75 units SUB-Q QDAY 09/30/13 05/17/18 09/29/13 10 :00 History [Humalog Mix 75-25 Vial] Lisinopril [Zestril TAB] 20 mg PO BID 09/30/13 05/17/18 09/30/13 07:00 History Potassium Chloride [Klor-Con] 20 meq PO QDAY 09/30/13 05/17/18 09/29/13 10:00 History Prednisone 40 mg PO QDAY #8 tablet 09/30/13 05/17/18 Unknown Rx glipiZIDE [glipiZIDE XL] 10 mg PO QDAY 09/30/13 05/17/18 09/29/13 10:00 History metFORMIN [Glucophage] 500 mg PO BID 09/30/13 05/17/18 09/29/13 18:00 History HYDROcodone/APAP 5-325 [[place] 1 each PO Q6HR PRN #20 tablet 11/10/14 05/17/18 Unknown Rx 5-325 mg TAB] Ondansetron [Zofran] 4 mg PO Q6HR PRN #20 tablet 11/10/14 05/17/18 Unknown Rx HYDROcodone/APAP 5-325 [[place] 1 each PO Q6HR PRN #20 tablet 03/15/15 05/17/18 Unknown Rx 5/325] guaiFENesin/CODEINE [Robitussin AC] 10 ml PO QHS PRN #70 ml 12/14/16 05/17/18 Unknown Rx predniSONE [Deltasone] 20 mg PO QDAY #5 tab 12/14/16 05/17/18 Unknown Rx Prednisone [predniSONE 10 mg 10 mg PO .TAPER #1 tab.ds.pk 11/14/17 05/17/18 Unknown Rx (6-Day Pack, 21 Tabs)] guaiFENesin/CODEINE [Robitussin AC] 10 ml PO TID PRN #100 ml 11/14/17 05/17/18 Unknown Rx ED Physical Exam - General Limitations: No Limitations General appearance: alert, in no apparent distress - Head Head exam: Present: atraumatic, normocephalic - Eye Eye exam: Present: normal appearance - ENT ENT exam: Present: mucous membranes moist - Neck Neck exam: Present: normal inspection - Respiratory Respiratory exam: Present: decreased breath sounds. Absent: normal lung sounds bilaterally, respiratory distress, wheezes, rales, rhonchi - Cardiovascular Cardiovascular Exam: Present: regular rate, normal rhythm. Absent: systolic murmur, diastolic murmur, rubs, gallop - GI/Abdominal GI/Abdominal exam: Present: soft, distended, normal bowel sounds. Absent: tenderness, guarding, rebound - Extremities Exam Extremities exam: Present: normal inspection, other (patient has 3+ edema in the bilateral lower extremities up to the thighs.) - Back Exam Back exam: Present: normal inspection - Neurological Exam Neurological exam: Present: alert, oriented X3 - Psychiatric Psychiatric exam: Present: normal affect, normal mood - Skin Skin exam: Present: warm, dry, intact, normal color. Absent: rash ED Course Vital Signs 05/17/18 11:58 Temperature 98.5 F Pulse Rate 95 H Respiratory 16 Rate Blood Pressure 139/56 O2 Sat by Pulse 96 Oximetry ED Medical Decision Making - Lab Data Result diagrams: 05/17/18 14:05 05/17/18 14:05 Lab Results 05/17/18 05/17/18 05/17/18 Range/Units 14:05 14:05 14:05 WBC 8.8 (4.5-11.0) K/mm3 RBC 4.48 (3.65-5.03) M/mm3 Hgb 12.0 (10.1-14.3) gm/dl Hct 36.3 (30.3-42.9) % MCV 81 (79-97) fl MCH 27 L (28-32) pg MCHC 33 (30-34) % RDW 15.0 (13.2-15.2) % Plt Count 316 (140-440) K/mm3 Lymph % (Auto) 32.1 (13.4-35.0) % [place] % (Auto) 4.7 (0.0-7.3) % Eos % (Auto) 1.3 (0.0-4.3) % Baso % (Auto) 0.7 (0.0-1.8) % Lymph # 2.8 (1.2-5.4) K/mm3 [place] # 0.4 (0.0-0.8) K/mm3 Eos # 0.1 (0.0-0.4) K/mm3 Baso # 0.1 (0.0-0.1) K/mm3 Seg Neutrophils % 61.2 (40.0-70.0) % Seg Neutrophils # 5.4 (1.8-7.7) K/mm3 PT 13.1 (12.2-14.9) Sec. INR 0.95 (0.87-1.13) APTT 37.2 H (24.2-36.6) Sec. Sodium 138 (137-145) mmol/L Potassium 4.1 (3.6-5.0) mmol/L Chloride 99.8 (98-107) mmol/L Carbon Dioxide 26 (22-30) mmol/L Anion Gap 16 mmol/L BUN 11 (7-17) mg/dL Creatinine 0.7 (0.7-1.2) mg/dL Estimated GFR > 60 ml/min BUN/Creatinine Ratio 16 % Glucose 245 H (65-100) mg/dL Calcium 9.5 (8.4-10.2) mg/dL Troponin T < 0.010 (0.00-0.029) ng/mL NT-Pro-B Natriuret Pep (0-900) pg/mL 05/17/18 Range/Units 14:05 WBC (4.5-11.0) K/mm3 RBC (3.65-5.03) M/mm3 Hgb (10.1-14.3) gm/dl Hct (30.3-42.9) % MCV (79-97) fl MCH (28-32) pg MCHC (30-34) % RDW (13.2-15.2) % Plt Count (140-440) K/mm3 Lymph % (Auto) (13.4-35.0) % [place] % (Auto) (0.0-7.3) % Eos % (Auto) (0.0-4.3) % Baso % (Auto) (0.0-1.8) % Lymph # (1.2-5.4) K/mm3 [place] # (0.0-0.8) K/mm3 Eos # (0.0-0.4) K/mm3 Baso # (0.0-0.1) K/mm3 Seg Neutrophils % (40.0-70.0) % Seg Neutrophils # (1.8-7.7) K/mm3 PT (12.2-14.9) Sec. INR (0.87-1.13) APTT (24.2-36.6) Sec. Sodium (137-145) mmol/L Potassium (3.6-5.0) mmol/L Chloride (98-107) mmol/L Carbon Dioxide (22-30) mmol/L Anion Gap mmol/L BUN (7-17) mg/dL Creatinine (0.7-1.2) mg/dL Estimated GFR ml/min BUN/Creatinine Ratio % Glucose (65-100) mg/dL Calcium (8.4-10.2) mg/dL Troponin T (0.00-0.029) ng/mL NT-Pro-B Natriuret Pep 426.8 (0-900) pg/mL - EKG Data -: EKG Interpreted by Me EKG shows normal: sinus rhythm (rate of 97), axis, intervals, QRS complexes, ST- T waves Rate: normal - EKG Data Interpretation: normal EKG 05/17/18 15:34 Interpretation 12 noon - Radiology Data interpreted by me: Borderline cardiomegaly with pulmonary vascular congestion versus haziness from body habitus - Medical Decision Making Patient clinically has really congestive heart failure. Patient also has chest pain will need to be ruled out for acute coronary syndrome. The patient admitted to the hospitalist service at this time. Critical care attestation.: If time is entered above; I have spent that time in minutes in the direct care of this critically ill patient, excluding procedure time. ED Disposition Clinical Impression: Acute exacerbation of congestive heart failure Qualifiers: Heart failure type: diastolic Qualified Code(s): I50.33 - Acute on chronic diastolic (congestive) heart failure Chest pain Qualifiers: Chest pain type: unspecified Qualified Code(s): R07.9 - Chest pain, unspecified Disposition: DC/TX-02 SHRT-TRM GEN HOSP IP Is pt being admited?: Yes Does the pt Need Aspirin: No Condition: Stable Instructions: Chest Pain (ED) Referrals: PRIMARY CARE, [Primary Care Provider] - 3-5 Days
[2018-05-17 14:29] LABS: Basophils # (Auto) 0.1 K/mm3 (0.0-0.1); Basophils % (Auto) 0.7 % (0.0-1.8); Eosinophils # (Auto) 0.1 K/mm3 (0.0-0.4); Eosinophils % (Auto) 1.3 % (0.0-4.3); Hematocrit 36.3 % (30.3-42.9); Lymphocytes # (Auto) 2.8 K/mm3 (1.2-5.4); Lymphocytes % (Auto) 32.1 % (13.4-35.0); Mean Corpuscular HGB Conc 33 % (30-34); Mean Corpuscular Hemoglobin 27 pg (28-32); Mean Corpuscular Volume 81 fl (79-97); Monocytes # (Auto) 0.4 K/mm3 (0.0-0.8); Monocytes % (Auto) 4.7 % (0.0-7.3); Platelet Count 316 K/mm3 (140-440); Red Blood Count 4.48 M/mm3 (3.65-5.03)
[2018-05-17 14:34] LABS: INR 0.95 (0.87-1.13)
[2018-05-17 14:35] LABS: Partial Thromboplastin Time 37.2 Sec. (24.2-36.6)
[2018-05-17 14:39] LABS: BUN/Creatinine Ratio 16; Blood Urea Nitrogen 11 mg/dL (7-17); Calcium 9.5 mg/dL (8.4-10.2); Hemolysis Index 0
--- NOTE | 2018-05-17 14:56 | XRay Report ---
AP CHEST: HISTORY: Dyspnea AP view of the chest demonstrates a normal mediastinal and cardiac contour with clear lungs and normal bony and soft tissue structures. IMPRESSION: Unremarkable AP chest.
[2018-05-17] MEDS ORDERED: ZOFRAN IV PRN (17:06)
[2018-05-17] MEDS ORDERED: SODIUM CHLORIDE FLUSH SYRINGE 10 ML IV PRN ×2 (17:06→19:58)
[2018-05-17] MEDS ORDERED: TYLENOL PO PRN (17:06)
[2018-05-17] MEDS ORDERED: PROVENTIL IH PRN (17:06)
[2018-05-17] MEDS ORDERED: ROBITUSSIN AC PO PRN ×2 (17:09)
[2018-05-17] MEDS ORDERED: ZOFRAN PO PRN (17:09)
--- NOTE | 2018-05-17 17:11 | History and Physical Report ---
History of Present Illness Chief complaint: Im short of breath and im swollen History of present illness: 58 YO Female with MO, CHF, DM, GERD, OA, Asthma, HLD, Sciatica presents to ED for evaluation. Pt states that she has experienced shortness of breath and leg swelling for the past 1 week, with worsening symptoms over the past 3 days. Pt acknowledges chest pain. Pain is 4/10, substernal, nonradiating, associated with shortness of breath, not worsened with exertion or relieved with rest. Pt also acknowledges decreased exercise tolerance, PND, and noncompliance with diet. Pt denies medication noncompliance. Pt also denies fever, chills, palpitations, Syncope, BRBPR, Unintentional weight loss, night sweats, bone pain , or recent ill contacts. Pt seen and evaluated in ED and found to have symptoms consistent with ACS as well as CHF. Pt admitted to telemetry. Cardiology consulted in ED. Past History Past Medical History: arthritis, diabetes, GERD, heart failure, hypertension, hyperlipidemia Past Surgical History: hysterectomy Social history: . denies: smoking, alcohol abuse, prescription drug abuse Family history: diabetes, hypertension Medications and Allergies Allergies Allergy/AdvReac Type Severity Reaction Status Date / Time cephalexin monohydrate Allergy Anaphylaxis Verified 05/12/17 08:11 [From Keflex] ciprofloxacin HCl Allergy "KIDNEY Verified 05/12/17 08:11 [From Cipro] PROBLEMS" ciprofloxacin [From Cipro] AdvReac "KIDNEY Verified 05/12/17 08:11 PROBLEMS" Home Medications Medication Instructions Recorded Confirmed Last Taken Type Albuterol Sulfate [Proventil HFA] 1 - 2 puff IH Q4H PRN #1 hfa.aer.ad 09/30/13 05/17/18 Unknown Rx Aspirin [Aspirin BABY CHEW TAB] 81 mg PO QDAY 09/30/13 05/17/18 09/30/13 07:00 History Furosemide [Lasix] 20 mg PO QDAY 09/30/13 05/17/18 09/29/13 10:00 History Ibuprofen [Motrin] 800 mg PO TID PRN #20 tablet 09/30/13 05/17/18 Unknown Rx Insulin Lispro Prot/Lispro 45 units SUB-Q QPM 09/30/13 05/17/18 09/29/13 18:00 History [Humalog Mix 75/25] Insulin Lispro Protamin/Lispro 75 units SUB-Q QDAY 09/30/13 05/17/18 09/29/13 10 :00 History [Humalog Mix 75-25 Vial] Lisinopril [Zestril TAB] 20 mg PO BID 09/30/13 05/17/18 09/30/13 07:00 History Potassium Chloride [Klor-Con] 20 meq PO QDAY 09/30/13 05/17/18 09/29/13 10:00 History Prednisone 40 mg PO QDAY #8 tablet 09/30/13 05/17/18 Unknown Rx glipiZIDE [glipiZIDE XL] 10 mg PO QDAY 09/30/13 05/17/18 09/29/13 10:00 History metFORMIN [Glucophage] 500 mg PO BID 09/30/13 05/17/18 09/29/13 18:00 History HYDROcodone/APAP 5-325 [Agra 1 each PO Q6HR PRN #20 tablet 11/10/14 05/17/18 Unknown Rx 5-325 mg TAB] Ondansetron [Zofran] 4 mg PO Q6HR PRN #20 tablet 11/10/14 05/17/18 Unknown Rx HYDROcodone/APAP 5-325 [Agra 1 each PO Q6HR PRN #20 tablet 03/15/15 05/17/18 Unknown Rx 5/325] guaiFENesin/CODEINE [Robitussin AC] 10 ml PO QHS PRN #70 ml 12/14/16 05/17/18 Unknown Rx predniSONE [Deltasone] 20 mg PO QDAY #5 tab 12/14/16 05/17/18 Unknown Rx Prednisone [predniSONE 10 mg 10 mg PO .TAPER #1 tab.ds.pk 11/14/17 05/17/18 Unknown Rx (6-Day Pack, 21 Tabs)] guaiFENesin/CODEINE [Robitussin AC] 10 ml PO TID PRN #100 ml 11/14/17 05/17/18 Unknown Rx Active Meds: Active Medications Acetaminophen (Tylenol) 650 mg PO Q4H PRN PRN Reason: Pain MILD(1-3)/Fever >100.5/JUSTIN Albuterol (Proventil) 2.5 mg IH Q4HRT PRN PRN Reason: Shortness Of Breath Aspirin (Baby Aspirin) 81 mg PO QDAY [facility] Famotidine (Pepcid) 20 mg PO BID [facility] Furosemide (Lasix) 20 mg IV BID@0600,1800 [facility] Ondansetron HCl (Zofran) 4 mg IV Q8H PRN PRN Reason: Nausea And Vomiting Sodium Chloride (Sodium Chloride Flush Syringe 10 Ml) 10 ml IV BID [facility] Sodium Chloride (Sodium Chloride Flush Syringe 10 Ml) 10 ml IV PRN PRN PRN Reason: LINE FLUSH Review of Systems Constitutional: no weight loss, no weight gain, no fever, no chills Ears, nose, mouth and throat: no ear pain, no ear discharge, no tinnitis, no decreased hearing, no nose pain, no nasal congestion Breasts: no change in shape, no swelling, no mass Cardiovascular: chest pain, shortness of breath, paroxysmal nocturnal dyspnea, leg edema, decreased exercise tolerance, no claudication Respiratory: no cough, no cough with sputum, no excessive sputum, no hemoptysis , no shortness of breath Gastrointestinal: no abdominal pain, no nausea, no vomiting, no diarrhea, no constipation Genitourinary Female: no pelvic pain, no flank pain, no menorrhagia, no dysuria , no urinary frequency, no urgency Rectal: no pain, no incontinence, no bleeding Musculoskeletal: no neck stiffness, no neck pain, no shooting arm pain, no arm numbness/tingling, no low back pain, no shooting leg pain Integumentary: no rash, no pruritis, no redness, no sores, no wounds, no jaundice, no boils Neurological: no paralysis, no weakness, no parathesias, no numbness, no tingling, no seizures Psychiatric: no anxiety, no memory loss, no change in sleep habits, no sleep disturbances, no insomnia, no hypersomnia, no change in appetite, no change in libido Endocrine: no cold intolerance, no heat intolerance, no polyphagia, no excessive thirst, no polydipsia, no polyuria, no nocturia Hematologic/Lymphatic: no easy bruising, no easy bleeding, no lymphadenopathy, no lymphedema Allergic/Immunologic: no urticaria, no allergic rhinitis, no wheezing, no persistent infections, no angioedema Exam - Constitutional Vitals: Temp Pulse Resp BP Pulse Ox 98.5 F 95 H 16 139/56 96 05/17/18 11:58 05/17/18 11:58 05/17/18 11:58 05/17/18 11:58 05/17/18 11:58 General appearance: Present: mild distress, obese - EENT Eyes: Present: PERRL ENT: hearing intact, clear oral mucosa - Neck Neck: Present: supple, normal ROM - Respiratory Respiratory effort: normal Respiratory: bilateral: diminished - Cardiovascular Heart Sounds: Present: S1 & S2. Absent: rub, click - Extremities Extremities: pulses symmetrical, No edema Extremity abnormal: edema Peripheral Pulses: within normal limits - Abdominal General gastrointestinal: Present: soft, non-tender, non-distended, normal bowel sounds Female genitourinary: Present: normal - Integumentary Integumentary: Present: clear, warm, dry - Musculoskeletal Musculoskeletal: gait normal, strength equal bilaterally - Psychiatric Psychiatric: appropriate mood/affect, intact judgment & insight - Neurologic Neurologic: CNII-XII intact, moves all extremities Results - Labs CBC & Chem 7: 05/17/18 14:05 05/17/18 14:05 Labs: Abnormal lab results 05/17/18 05/17/18 05/17/18 Range/Units 14:05 14:05 14:05 MCH 27 L (28-32) pg APTT 37.2 H (24.2-36.6) Sec. Glucose 245 H (65-100) mg/dL Assessment and Plan - Patient Problems (1) ACS (acute coronary syndrome) Current Visit: Yes Status: Acute Plan to address problem: Admit to telemetry: Serial cardiac enzymes, EKG, Stress test, morphine, supplemental oxygen, nitro, aspirin, (2) Obesity hypoventilation syndrome Current Visit: Yes Status: Acute Plan to address problem: supplemental oxygen, nebulizer therapy, NIPPV as clinically indicated. OOB to chair TID and prn (3) Diabetes Current Visit: Yes Status: Acute Plan to address problem: AD diet, insulin, accu check (4) HTN (hypertension) Current Visit: Yes Status: Acute Qualifiers: Hypertension type: essential hypertension Qualified Code(s): I10 - Essential (primary) hypertension Plan to address problem: monitor bp q shift, continue medical management. (5) Acute exacerbation of congestive heart failure Current Visit: Yes Status: Acute Qualifiers: Heart failure type: systolic Qualified Code(s): I50.23 - Acute on chronic systolic (congestive) heart failure Plan to address problem: Admit to telemetry, Echo, D dimer, BNP, chest x ray, supplemental oxygen, cardiology consulted in ED, diuresis, afterload reduction, strict I/O, daily weight, monitor uop q shift, (6) DVT prophylaxis Current Visit: Yes Status: Acute Plan to address problem: SCD to BLE while in bed
[2018-05-17] MEDS ORDERED: [UNRECOGNIZED DRUG - OTHER] SUB-Q SCH (18:00)
[2018-05-17] MEDS ORDERED: INSULIN LISPRO PROTAMINE SUB-Q SCH (18:00)
[2018-05-17] MEDS: LASIX IV SCH (18:20)
[2018-05-17] MEDS ORDERED: NITROSTAT SL PRN (19:58)
[2018-05-17 20:57] LABS: Chol/HDL Ratio 4.55 %
[2018-05-17] MEDS: ZESTRIL PO SCH (22:07)
[2018-05-17] MEDS: NORCO 5/325 PO PRN (22:07)
[2018-05-17] MEDS: PEPCID PO SCH (22:07)
[2018-05-17] MEDS: SODIUM CHLORIDE FLUSH SYRINGE 10 ML IV SCH (22:08)
[2018-05-18] MEDS: HumaLOG SUB-Q SCH ×3 (01:00→12:28)
[2018-05-18] MEDS: LASIX IV SCH (06:18)
[2018-05-18] MEDS ORDERED: LEXISCAN IV ONE (09:30)
[2018-05-18] MEDS ORDERED: INSULIN LISPRO PROTAMINE SUB-Q SCH (10:00)
[2018-05-18] MEDS ORDERED: DELTASONE PO SCH (10:00)
[2018-05-18] MEDS ORDERED: POTASSIUM CHLORIDE PO SCH (10:00)
[2018-05-18] MEDS ORDERED: BABY ASPIRIN PO SCH (10:00)
[2018-05-18] MEDS ORDERED: [UNRECOGNIZED DRUG - OTHER] SUB-Q SCH (10:00)
--- NOTE | 2018-05-18 11:11 | Consultation ---
History of Present Illness Consult date: 05/18/18 Consult reason: congestive heart failure History of present illness: 58 year old female presenting with shortness of breath and diffuse edema Past History Past Medical History: arthritis, diabetes, GERD, heart failure, hypertension, hyperlipidemia Past Surgical History: hysterectomy Social history: . denies: smoking, alcohol abuse, prescription drug abuse Family history: diabetes, hypertension Medications and Allergies Allergies Allergy/AdvReac Type Severity Reaction Status Date / Time cephalexin monohydrate Allergy Anaphylaxis Verified 05/12/17 08:11 [From Keflex] ciprofloxacin HCl Allergy "KIDNEY Verified 05/12/17 08:11 [From Cipro] PROBLEMS" ciprofloxacin [From Cipro] AdvReac "KIDNEY Verified 05/12/17 08:11 PROBLEMS" Home Medications Medication Instructions Recorded Confirmed Last Taken Type Albuterol Sulfate [Proventil HFA] 1 - 2 puff IH Q4H PRN #1 hfa.aer.ad 09/30/13 05/17/18 Unknown Rx Aspirin [Aspirin BABY CHEW TAB] 81 mg PO QDAY 09/30/13 05/17/18 09/30/13 07:00 History Furosemide [Lasix] 20 mg PO QDAY 09/30/13 05/17/18 09/29/13 10:00 History Ibuprofen [Motrin] 800 mg PO TID PRN #20 tablet 09/30/13 05/17/18 Unknown Rx Insulin Lispro Prot/Lispro 45 units SUB-Q QPM 09/30/13 05/17/18 09/29/13 18:00 History [Humalog Mix 75/25] Insulin Lispro Protamin/Lispro 75 units SUB-Q QDAY 09/30/13 05/17/18 09/29/13 10 :00 History [Humalog Mix 75-25 Vial] Lisinopril [Zestril TAB] 20 mg PO BID 09/30/13 05/17/18 09/30/13 07:00 History Potassium Chloride [Klor-Con] 20 meq PO QDAY 09/30/13 05/17/18 09/29/13 10:00 History Prednisone 40 mg PO QDAY #8 tablet 09/30/13 05/17/18 Unknown Rx glipiZIDE [glipiZIDE XL] 10 mg PO QDAY 12/09/13 07/26/18 12/08/13 10:00 History metFORMIN [Glucophage] 500 mg PO BID 09/30/13 05/17/18 09/29/13 18:00 History HYDROcodone/APAP 5-325 [[place] 1 each PO Q6HR PRN #20 tablet 11/10/14 05/17/18 Unknown Rx 5-325 mg TAB] Ondansetron [Zofran] 4 mg PO Q6HR PRN #20 tablet 11/10/14 05/17/18 Unknown Rx HYDROcodone/APAP 5-325 [[place] 1 each PO Q6HR PRN #20 tablet 03/15/15 05/17/18 Unknown Rx 5/325] guaiFENesin/CODEINE [Robitussin AC] 10 ml PO QHS PRN #70 ml 12/14/16 05/17/18 Unknown Rx predniSONE [Deltasone] 20 mg PO QDAY #5 tab 12/14/16 05/17/18 Unknown Rx Prednisone [predniSONE 10 mg 10 mg PO .TAPER #1 tab.ds.pk 11/14/17 05/17/18 Unknown Rx (6-Day Pack, 21 Tabs)] guaiFENesin/CODEINE [Robitussin AC] 10 ml PO TID PRN #100 ml 11/14/17 05/17/18 Unknown Rx Active Meds: Active Medications Acetaminophen (Tylenol) 650 mg PO Q4H PRN PRN Reason: Pain MILD(1-3)/Fever >100.5/JUSTIN Acetaminophen/Hydrocodone Bitart ([place] 5/325) 1 each PO Q6HR PRN PRN Reason: Pain Last Admin: 05/17/18 22:07 Dose: 1 each Albuterol (Proventil) 2.5 mg IH Q4HRT PRN PRN Reason: Shortness Of Breath Aspirin (Baby Aspirin) 81 mg PO QDAY [facility] Famotidine (Pepcid) 20 mg PO BID [facility] Last Admin: 05/17/18 22:07 Dose: 20 mg Furosemide (Lasix) 20 mg IV BID@0600,1800 [facility] Last Admin: 05/18/18 06:18 Dose: 20 mg Insulin Human Isoph/Insulin Regular (Humulin 70/30) 75 unit SUB-Q QDAY [facility] Insulin Human Lispro (Humalog) 0 unit SUB-Q ACHS [facility]; Protocol Last Admin: 05/18/18 07:30 Dose: Not Given Lisinopril (Zestril) 20 mg PO BID [facility] Last Admin: 05/17/18 22:07 Dose: 20 mg Nitroglycerin (Nitrostat) 0.4 mg SL Q5M PRN PRN Reason: Chest Pain Ondansetron HCl (Zofran) 4 mg IV Q8H PRN PRN Reason: Nausea And Vomiting Ondansetron HCl (Zofran) 4 mg PO Q6HR PRN PRN Reason: Vomiting Potassium Chloride (Potassium Chloride) 20 meq PO QDAY [facility] Prednisone (Deltasone) 20 mg PO QDAY [facility] Pseudoephedrine/Acetam/Chlorphenir (Robitussin Ac) 10 ml PO QHS PRN PRN Reason: Cough Pseudoephedrine/Acetam/Chlorphenir (Robitussin Ac) 10 ml PO TID PRN PRN Reason: Cough Sodium Chloride (Sodium Chloride Flush Syringe 10 Ml) 10 ml IV BID [facility] Last Admin: 05/17/18 22:08 Dose: 10 ml Sodium Chloride (Sodium Chloride Flush Syringe 10 Ml) 10 ml IV PRN PRN PRN Reason: LINE FLUSH Sodium Chloride (Sodium Chloride Flush Syringe 10 Ml) 10 ml IV PRN PRN PRN Reason: LINE FLUSH Review of Systems All systems: negative Physical Examination Vital Signs Temp Pulse Resp BP Pulse Ox 98.5 F 95 H 16 139/56 96 05/17/18 11:58 05/17/18 11:58 05/17/18 11:58 05/17/18 11:58 05/17/18 11:58 General appearance: no acute distress HEENT: Positive: PERRL Neck: Positive: neck supple Cardiac: Positive: Reg Rate and Rhythm Lungs: Positive: Normal Exam Abdomen: Positive: Soft Extremities: Present: edema Results 05/17/18 14:05 05/17/18 14:05 Coagulation 05/17/18 Range/Units 14:05 PT 13.1 (12.2-14.9) Sec. INR 0.95 (0.87-1.13) APTT 37.2 H (24.2-36.6) Sec. Lipids 05/17/18 Range/Units 19:57 Triglycerides 156 H (2-149) mg/dL Cholesterol 223 H (50-199) mg/dL HDL Cholesterol 49 (40-59) mg/dL Cholesterol/HDL Ratio 4.55 % CBC 05/17/18 Range/Units 14:05 WBC 8.8 (4.5-11.0) K/mm3 RBC 4.48 (3.65-5.03) M/mm3 Hgb 12.0 (10.1-14.3) gm/dl Hct 36.3 (30.3-42.9) % Plt Count 316 (140-440) K/mm3 Lymph # 2.8 (1.2-5.4) K/mm3 Andrews # 0.4 (0.0-0.8) K/mm3 Eos # 0.1 (0.0-0.4) K/mm3 Baso # 0.1 (0.0-0.1) K/mm3 Comprehensive Metabolic Panel 05/17/18 Range/Units 14:05 Sodium 138 (137-145) mmol/L Potassium 4.1 (3.6-5.0) mmol/L Chloride 99.8 (98-107) mmol/L Carbon Dioxide 26 (22-30) mmol/L BUN 11 (7-17) mg/dL Creatinine 0.7 (0.7-1.2) mg/dL Glucose 245 H (65-100) mg/dL Calcium 9.5 (8.4-10.2) mg/dL EKG interpretations - Telemetry EKG Rhythm: Sinus Rhythm Assessment and Plan Shortness of breath Normal CXR Normal 12 lead ECG Normal lexiscan MPI, LVEF 62% Type II DM Systemic Hypertension Hyperlipidemia Morbid obesity Recommendations: asa, lipitor, lisinopril, lasix No further cardiac work-up is needed Outpatient sleep study is warranted Consider CTA chest to evaluate elevated D-Dimer
[2018-05-18] MEDS: PEPCID PO SCH (11:54)
[2018-05-18] MEDS: ZESTRIL PO SCH (11:59)
[2018-05-18] MEDS: SODIUM CHLORIDE FLUSH SYRINGE 10 ML IV SCH (12:00)
[2018-05-18 12:01] VITALS: BP 166/73
[2018-05-18] MEDS: NORCO 5/325 PO PRN (12:17)
--- NOTE | 2018-05-18 14:23 | Cat Scan Report ---
CTA chest: History: Elevated d-dimer. Findings: No evidence of aortic aneurysm or pulmonary embolism. No mediastinal mass or adenopathy. No pleural or pericardial effusion. No acute changes of the lung parenchyma. No mass. Impression: Essentially negative CTA of chest.
--- NOTE | 2018-05-18 14:59 | Discharge Summary ---
Providers - Providers Date of Admission: 05/17/18 17:06 Date of discharge: 05/18/18 Attending physician: BALWINDER LAMB 05/17/18 Consult to Cardiac Rehabilitation [CONS] Routine Reason For Exam: Phase I 05/17/18 17:06 Consult to Physician [CONS] Routine Comment: Consulting Provider: EVE MATHIS Physician Instructions: Reason For Exam: chf 05/17/18 19:58 Consult to Cardiology [CONS] Routine Consulting Provider: EVE MATHIS Reason For Exam: acs Primary care physician: [employer] TECHNICIAN Hospitalization Condition: Stable Hospital course: Discharge diagnosis: /Dyspnea, likely from obesity hypoventilation syndrome vs HÉCTOR- need outpt sleep study - Normal CXR, Normal 12 lead ECG, Normal lexiscan MPI, LVEF 62%, Normal CTA chest /b/l LE swelling, likely from venous stasis /Type II DM, a1c 9.0 /Systemic Hypertension /Hyperlipidemia /Morbid obesity Disposition: DC- TO HOME OR SELFCARE Time spent for discharge: 34 minutes Core Measure Documentation - Palliative Care Palliative Care/ Comfort Measures: Not Applicable - Core Measures Any of the following diagnoses?: none Exam - Constitutional Vitals: Temp Pulse Resp BP Pulse Ox 98.0 F 94 H 20 166/73 95 05/18/18 11:53 05/18/18 11:59 05/18/18 12:17 05/18/18 11:59 05/18/18 11:53 General appearance: Present: no acute distress, obese - EENT Eyes: Present: PERRL ENT: hearing intact, clear oral mucosa - Neck Neck: Present: supple, normal ROM - Respiratory Respiratory effort: normal Respiratory: bilateral: CTA - Cardiovascular Heart Sounds: Present: S1 & S2. Absent: rub, click - Extremities Extremities: pulses symmetrical Extremity abnormal: edema (trace) Peripheral Pulses: within normal limits - Abdominal General gastrointestinal: Present: soft, non-tender, non-distended, normal bowel sounds - Integumentary Integumentary: Present: clear, warm, dry - Musculoskeletal Musculoskeletal: gait normal, strength equal bilaterally - Psychiatric Psychiatric: appropriate mood/affect, intact judgment & insight - Neurologic Neurologic: CNII-XII intact, moves all extremities Plan Activity: advance as tolerated Weight Bearing Status: Weight Bear as Tolerated Diet: low fat, low salt, diabetic Follow up with: PRIMARY CARE, [Primary Care Provider] - 3-5 Days Prescriptions: Pravastatin Sodium [Pravastatin] 40 mg PO QHS #30 tablet Aspirin [Aspirin BABY CHEW TAB] 81 mg PO QDAY #30 tab.chew Carvedilol [Coreg] 3.125 mg PO BID #60 tablet Furosemide [Lasix TAB] 40 mg PO QDAY #30 tablet glipiZIDE [glipiZIDE XL] 10 mg PO QDAY #30 tab.er.24 Lisinopril [Zestril TAB] 20 mg PO BID #60 tablet metFORMIN [Glucophage] 500 mg PO BID #60 tablet Potassium Chloride [K-Dur] 10 meq PO QDAY #30 tablet
[2018-05-18] MEDS ORDERED: COREG PO SCH (15:00)
--- NOTE | 2018-05-19 00:49 | Treadmill Report ---
INDICATION: Shortness of breath. ORDERING PHYSICIAN: Chase Rodriguez M.D. FINDINGS: 1. This is a fair quality myocardial perfusion scan limited by significant anterior breast attenuation artifact. 2. There is no scintigraphic evidence of myocardial ischemia. 3. The left ventricle is normal in size and systolic function with an ejection fraction measured at 62%. Normal wall motion and wall thickening is noted on gated imaging. CONCLUSION: This is a normal perfusion scan associated with a low cardiovascular event rate of less than 1% in the next 1 year. JOB# [id number] YAZMIN/CRISTIAN
== END 2018-05-18 18:11 | disposition home or self-care (01) | DRG 205 ==
LOC: ED 11:43 → 4A 17:06
PROVIDERS: ADMIT Internal Medicine; ATTEND Internal Medicine
DX: E66.2 Morbid (severe) obesity with alveolar hypoventilation (principal); I50.21 Acute systolic (congestive) heart failure; I24.9 Acute ischemic heart disease, unspecified; Z68.43 Body mass index [BMI] 50.0-59.9, adult; I11.0 Hypertensive heart disease with heart failure; I87.8 Other specified disorders of veins; E11.9 Type 2 diabetes mellitus without complications; E78.5 Hyperlipidemia, unspecified; M19.90 Unspecified osteoarthritis, unspecified site; K21.9 Gastro-esophageal reflux disease without esophagitis; Z90.710 Acquired absence of both cervix and uterus; Z83.3 Family history of diabetes mellitus; Z82.49 Family history of ischemic heart disease and other diseases of the circulatory system; Z79.899 Other long term (current) drug therapy; Z79.82 Long term (current) use of aspirin; Z79.4 Long term (current) use of insulin; Z87.442 Personal history of urinary calculi
CPT/HCPCS: 36415; 71045; 71275; 78452; 80048; 80061; 82962; 83036; 83880; 84484; 85025; 85379; 85610; 85730; 93005; 93010; 93017; 93306; 96374; A9502; J1815; J1940; J2785; J7512; Q9967

== ENCOUNTER 2018-11-06 09:47 | Emergency (ER) | payer SELFPAY ==
--- NOTE | 2018-11-06 10:10 | Emergency Department Report ---
ED Back Pain/Injury HPI - General Chief Complaint: Back Pain/Injury Stated Complaint: SIDE PAIN Time Seen by Provider: 11/06/18 10:05 Source: patient Mode of arrival: Ambulatory Limitations: Physical Limitation - History of Present Illness Initial Comments: Ms. Sierra is a pleasant 58-year-old -[place] female who comes into the ER complaining of nausea and right flank pain. She states that she had had the pain on the left side but that has resolved with over hydration, however, notes on the right side. She denies vomiting and she denies diarrhea. Patient is obese. She has a past medical history of kidney stones. Other significant h istory is for hypertension, hyperlipidemia, asthma and diabetes. - Related Data Home Medications Medication Instructions Recorded Confirmed Last Taken Insulin Lispro Prot/Lispro 45 units SUB-Q QPM 09/30/13 05/17/18 09/29/13 18:00 [HumaLOG Mix 75/25 Vial] Previous Rx's Medication Instructions Recorded Last Taken Type Albuterol Sulfate [Proventil HFA] 1 - 2 puff IH Q4H PRN #1 hfa.aer.ad 09/30/13 Unknown Rx Aspirin [Aspirin BABY CHEW TAB] 81 mg PO QDAY #30 tab.chew 05/18/18 Unknown Rx Furosemide [Lasix TAB] 40 mg PO QDAY #30 tablet 05/18/18 Unknown Rx Lisinopril [Zestril TAB] 20 mg PO BID #60 tablet 05/18/18 Unknown Rx Potassium Chloride [K-Dur] 10 meq PO QDAY #30 tablet 05/18/18 Unknown Rx Pravastatin Sodium [Pravastatin] 40 mg PO QHS #30 tablet 05/18/18 Unknown Rx metFORMIN [Glucophage] 500 mg PO BID #60 tablet 05/18/18 Unknown Rx Nitrofurantoin Monohyd/M-Cryst 100 mg PO BID #10 capsule 11/06/18 Unknown Rx [Macrobid 100 mg Capsule] Allergies Allergy/AdvReac Type Severity Reaction Status Date / Time cephalexin monohydrate Allergy Anaphylaxis Verified 05/12/17 08:11 [From Keflex] ciprofloxacin HCl Allergy "KIDNEY Verified 05/12/17 08:11 [From Cipro] PROBLEMS" ciprofloxacin [From Cipro] AdvReac "KIDNEY Verified 05/12/17 08:11 PROBLEMS" ED Review of Systems ROS: Stated complaint: SIDE PAIN Other details as noted in HPI Comment: All other systems reviewed and negative Constitutional: denies: chills, fever Eyes: denies: eye pain ENT: denies: ear pain Respiratory: denies: cough Cardiovascular: denies: dyspnea on exertion Endocrine: denies: flushing Gastrointestinal: as per HPI, abdominal pain, nausea. denies: vomiting, diarrhea, constipation, hematemesis Genitourinary: denies: as per HPI, urgency, dysuria, frequency, hematuria, discharge Musculoskeletal: as per HPI, back pain Skin: denies: rash Neurological: denies: headache Psychiatric: denies: anxiety ED Past Medical Hx - Past Medical History high cholesterol. SCIATICA. GALLSTONES Family history: hypertension ED Back Pain Physical Exam - Exam General: Vital signs noted. No distress. Alert and acting appropriately. Back/Abdomen: No Abdominal Tenderness, No Perithoracic Tenderness, No Perilumbar Tenderness, No Sacroiliac Tenderness, No Flank Tenderness, No Straight Leg Raise Pain Neuro: Yes Normal Sensation, Yes Normal DTR's, Yes Normal Gait, No Motor Weakness ED Course Vital Signs 11/06/18 09:54 Temperature 97.7 F Pulse Rate 97 H Respiratory 22 Rate Blood Pressure 204/93 O2 Sat by Pulse 98 Oximetry Ed Back Pain Tests - Tests Tests: Abnormal UA ED Medical Decision Making - Lab Data Result diagrams: 11/06/18 11:09 11/06/18 11:09 - Medical Decision Making Labs 11/06/18 11/06/18 11/06/18 10:16 11:09 11:09 WBC 9.4 RBC 4.65 Hgb 12.4 Hct 37.2 MCV 80 MCH 27 L MCHC 33 RDW 15.6 H Plt Count 299 Sodium 137 Potassium 4.0 Chloride 98.1 Carbon Dioxide 28 Anion Gap 15 BUN 11 Creatinine 1.1 Estimated GFR > 60 BUN/Creatinine Ratio 10 Glucose 270 H POC Glucose Calcium 8.8 Total Bilirubin 0.20 AST 9 ALT 9 Alkaline Phosphatase 82 Total Protein 6.7 Albumin 3.4 L Albumin/Globulin Ratio 1.0 Urine Color Yellow Urine Turbidity Slightly-cloudy Urine pH 5.0 Ur Specific [place] 1.025 Urine Protein >2000 mg dl Urine Glucose (UA) 150 Urine Ketones Tr Urine Blood Neg Urine Nitrite Neg Urine Bilirubin Neg Urine Urobilinogen 2.0 Ur Leukocyte Esterase Tr Urine WBC (Auto) 6.0 Urine RBC (Auto) 5.0 U Epithel Cells (Auto) 7.0 Urine Bacteria (Auto) 1+ Urine Mucus Few 11/06/18 11:16 WBC RBC Hgb Hct MCV MCH MCHC RDW Plt Count Sodium Potassium Chloride Carbon Dioxide Anion Gap BUN Creatinine Estimated GFR BUN/Creatinine Ratio Glucose POC Glucose 208 H Calcium Total Bilirubin AST ALT Alkaline Phosphatase Total Protein Albumin Albumin/Globulin Ratio Urine Color Urine Turbidity Urine pH Ur Specific [place] Urine Protein Urine Glucose (UA) Urine Ketones Urine Blood Urine Nitrite Urine Bilirubin Urine Urobilinogen Ur Leukocyte Esterase Urine WBC (Auto) Urine RBC (Auto) U Epithel Cells (Auto) Urine Bacteria (Auto) Urine Mucus UA NOTED WITH SIGN PROTEIN 1L NS LABS NOTED CR NORMAL DISCUSSED WITH PT SHE HAS BEEN GIVEN REFERRALS FOR ONGOING CARE. I TOLD HER SHE MAY NEED TO SEE A PREANALYTICS TEAM LEAD - Differential Diagnosis RO UTI/ K STONE Critical care attestation.: If time is entered above; I have spent that time in minutes in the direct care of this critically ill patient, excluding procedure time. ED Disposition Clinical Impression: Diabetes, HTN (hypertension), Diabetes mellitus with proteinuria Disposition: TO HOME OR SELFCARE Is pt being admited?: No Does the pt Need Aspirin: No Condition: Stable Instructions: Diabetes Mellitus Type 2 in Adults (ED) Additional Instructions: HYDRATE WELL WITH WATER DIABETIC DIET TAKE ALL MEDS INSTRUCTED FOLLOW YOUR BLOOD SUGAR AND BE SURE YOU ARE CONTROLLING YOUR DIABETES ANTIBIOTIC TODAY FOR 5 DAYS NO SIGN OF KIDNEY STONE CR IS NORMAL WBC IS NORMAL PROTEIN IS VERY HIGH IN URINE I NEED YOU TO FOLLOW UP WITH YOUR PCP THIS WEEK. HE KNOWS YOU AND YOUR MED CHANGES WELL HAS FOLLOWED YOUR DM AND LABS OVER TIME. LET HIM KNOW YOU WERE SEEN IN THE ER AND HE CAN CALL US FOR LAB RESULTS. AFTER THE ANTIBIOTIC YOU SHOULD HAVE PCP RECHECK YOUR URINE TO BE SURE THERE IS NO MORE BACTERIA- OR INFECTION MAY COME BACK WORSE. Prescriptions: Nitrofurantoin Monohyd/M-Cryst [Macrobid 100 mg Capsule] 100 mg PO BID #10 capsule Referrals: [facility] [Outside] - 3-5 Days PRIMARY CARE, [Primary Care Provider] - 3-5 Days AUTUMN BEDOLLA MD [Staff Physician] - 3-5 Days Time of Disposition: 12:59
[2018-11-06 10:46] LABS: Bacteria,Urine 1+ /HPF (Negative); Bilirubin,Urine NEG (Negative); Blood,Urine NEG (Negative); Color,Urine Yellow (Yellow); Mucus,Urine FEW /HPF
[2018-11-06 10:53] LABS: Protein,Urine >2000 mg dL mg/dL (Negative)
[2018-11-06] MEDS ORDERED: NACL 0.9% 1000 ML 1,000 ML IV ONE (10:57)
[2018-11-06 11:30] LABS: Hematocrit 37.2 % (30.3-42.9); Hemoglobin 12.4 gm/dl (10.1-14.3); Mean Corpuscular HGB Conc 33 % (30-34); Mean Corpuscular Volume 80 fl (79-97); Platelet Count 299 K/mm3 (140-440); Red Blood Count 4.65 M/mm3 (3.65-5.03); Red Cell Distribution Width 15.6 % (13.2-15.2)
[2018-11-06 12:55] LABS: Alanine Aminotransferase 9 units/L (7-56); Albumin 3.4 g/dL (3.9-5); BUN/Creatinine Ratio 10; Blood Urea Nitrogen 11 mg/dL (7-17); Calcium 8.8 mg/dL (8.4-10.2); Hemolysis Index 4
[2018-11-06 13:54] VITALS: BP 186/91
== END 2018-11-06 13:53 | disposition home or self-care (01) ==
LOC: ED 09:47
DX: E11.29 Type 2 diabetes mellitus with other diabetic kidney complication (principal); I10 Essential (primary) hypertension; E78.5 Hyperlipidemia, unspecified; J45.909 Unspecified asthma, uncomplicated; Z79.4 Long term (current) use of insulin; Z79.82 Long term (current) use of aspirin; Z88.1 Allergy status to other antibiotic agents; Z88.8 Allergy status to other drugs, medicaments and biological substances; Z87.442 Personal history of urinary calculi
CPT/HCPCS: 36415; 80053; 81001; 82962; 85027; 99283; J7030